=== PATIENT | female | born 1975 | race Caucasian/White ===

== ENCOUNTER 2016-10-12 12:44 | Emergency (ER) | payer OTHER ==
[~2016-10-12] VITALS: Ht 160 cm; Wt 57.6 kg
[2016-10-12 13:09] VITALS: BP 109/64
[2016-10-12] MEDS ORDERED: Ketorolac 60mg Inj IM ONE (13:45)
[2016-10-12 14:13] VITALS: BP 117/70
[2016-10-12] MEDS ORDERED: NAPROXEN500 M2 ORAL (14:37)
[2016-10-12 14:51] VITALS: BP 109/64
--- NOTE | 2016-10-12 20:50 | Emergency Room Report ---
History of Present Illness General Chief Complaint: Upper Extremity Injury Source: Patient (CALEB [email or web address].[email or web address]) Present Illness HPI 41-year-old female complains of left wrist injury that occurred 2 hours ago this morning while at work. Patient is right-hand dominant and was at work when a cart and he collided with her hand against the wall causing left wrist pain. States pain is currently 8/10 worse with movement. Patient denies taking any OTC medication. Patient has a history of prior injury to the first. Patient denies numbness, tingling, pressure, paralysis, paresthesia or cyanosis. (CALEB MCDONOUGH.ANabor) Allergies: Coded Allergies: No Known Allergies (Unverified , 10/12/16) Patient History Past Medical History: see triage record Pertinent Family History: none Last Menstrual Period: yest Now: No Immunizations: UTD Reviewed Nursing Documentation: PMH: Agreed, PSxH: Agreed (CALEB MCDONOUGH) Nursing Documentation-PMH Past Medical History: No Stated History (CALEB MCDONOUGH) Review of Systems All Other Systems: negative except mentioned in HPI (CALEB [email or web address].[email or web address]) Physical Exam Vital Signs Date Time Temp Pulse Resp B/P Pulse Ox O2 Delivery O2 Flow Rate FiO2 10/12/16 13:03 98.4 64 18 109/64 98 Room Air Sp02 EP Interpretation: reviewed, normal General Appearance: normal inspection, well appearing, no apparent distress, alert, GCS 15, non-toxic Head: normocephalic, atraumatic Eyes: bilateral eye normal inspection ENT: normal ENT inspection Neck: normal inspection Respiratory: normal inspection, no respiratory distress, speaking full sentences Cardiovascular #1: normal peripheral pulses Cardiovascular #2: 2+ radial (R), 2+ radial (L) Musculoskeletal: digits/nails normal, gait/station normal, normal range of motion, tender - ulnar aspect of left wrist, no swelling, echymosis, or erythema Neurologic: alert, oriented x3, responsive, motor strength/tone normal Psychiatric: judgement/insight normal, memory normal, mood/affect normal, no suicidal/homicidal ideation Skin: no rash, warm/dry, normal turgor Lymphatic: normal inspection, no adenopathy (CALEB MCDONOUGH.A.) Medical Decision Making PA Attestation Dr. Alvarado is my supervising physician with whom patient management has been discussed with. (CALEB MCDONOUGH) Diagnostic Impression: Primary Impression: Left wrist sprain Qualified Codes: S63.502A - Unspecified sprain of left wrist, initial encounter ER Course Pt. presents to the ED c/o left wrist injury Ddx considered but are not limited to fracture, contusion, sprain Vital signs: are WNL, pt. is afebrile H&PE are most consistent with sprains ORDERS: X-ray left wrist and Toradol IM ED INTERVENTIONS: Left wrist brace. DISCHARGE: At this time pt. is stable for d/c to home. Will provide printed patient care instructions, and any necessary prescriptions. Care plan and follow up instructions have been discussed with the patient prior to discharge. (CALEB MCDONOUGH) ER Course Scribe documentation reviewed by me and is accurate (Kishor Alvarado M.D.) Other X-Ray Diagnostic Results Other X-Ray Diagnostic Results : X-Ray Ordered: Left wrist x-ray EP Interpretation: Yes Findings: no fractures, no dislocation, no soft tissue swelling Number of Views: 3 (CALEB MCDONOUGH) Last Vital Signs Date Time Temp Pulse Resp B/P Pulse Ox O2 Delivery O2 Flow Rate FiO2 10/12/16 14:51 98.4 18 109/64 98 Room Air 10/12/16 14:13 87 Status: improved (CALEB MCDONOUGH) Disposition: HOME, SELF-CARE Condition: Improved Scripts Naproxen* (NAPROXEN*) 500 Mg Tablet 500 MG ORAL TWICE A WEEK, #30 TAB 0 Refills Prov: CALEB MCDONOUGH 10/12/16 Referrals: NON PHYSICIAN (PCP) Patient Instructions: RAMEZ Silverio for Routine Care of Injuries CALEB MCDONOUGH Oct 12, 2016 20:50 Kishor Alvarado M.D. Oct 15, 2016 07:07
--- NOTE | 2016-10-15 09:37 | Diagnostic Imaging Report ---
Clinical Indication:Injury, pain Technique: 3 views of the left wrist Comparison: None Findings: No acute fractures. No dislocations. The joint spaces are preserved Impression: Negative This agrees with the preliminary interpretation provided by the emergency room physician
== END 2016-10-12 14:51 | disposition home or self-care (01) ==
LOC: EMR 13:10
DX: S63.502A Unspecified sprain of left wrist, initial encounter (principal); W20.8XXA Other cause of strike by thrown, projected or falling object, initial encounter; Y92.238 Other place in hospital as the place of occurrence of the external cause; Y99.0 Civilian activity done for income or pay
CPT/HCPCS: 96372; 99283